=== PATIENT | male | born 1980 | race Caucasian/White ===

== ENCOUNTER 2016-10-10 07:39 | Emergency (ER) | payer OTHER ==
[~2016-10-10 07:39] MED LIST: BACTRIM DS TABL1 TA2 PO; BACTROBAN22 GM TP; CATAPRES-TTS-20.2 MG PO; CIPRO PO; DICLOFENAC PO; FLOMAX0.4 M1 PO; FLONASE 0.05% N16 GM; KEFLEX500 MG PO; NO MEDICATIONS; NORCO1 TAB 10/3 PO; RAMIPRIL5 MG PO; ZOFRANODT PO; ZYRTEC10 M2 PO
== END 2016-10-10 07:50 | disposition home or self-care (01) ==
LOC: SED 07:39
DX: L03.116 Cellulitis of left lower limb (principal); F17.200 Nicotine dependence, unspecified, uncomplicated; Z90.49 Acquired absence of other specified parts of digestive tract
CPT/HCPCS: 96372; 99283; J1885